=== PATIENT | male | born 1990 | race African-American/Black ===

== ENCOUNTER 2017-01-07 21:00 | Emergency (ER) | payer MEDICAID, OTHER ==
[~2017-01-07] VITALS: Ht 180.3 cm; Wt 85.0 kg
[2017-01-07 21:03] VITALS: BP 131/74; PULSE 78; RESP 16; TEMP 100.3; O2SAT 100
--- NOTE | 2017-01-07 22:58 | PD ---
HPI Chief Complaint: Injury Time Seen by Provider: 21:57 Travel History International Travel<30 days: No Contact w/Intl Traveler<30days: No Traveled to known affect area: No History of Present Illness HPI 26-year-old black male presents to emergency department requesting evaluation of possible glass foreign bodies in his feet. He states that he was barefoot last evening and stepped on a broken glass from his girlfriend. He had pulled what he felt was glass out of his left foot. He states that he try to get what he felt was glass out of his right foot feels a little something in it. He would like he also states that his girlfriend was diagnosed with an STD and he would like to be treated as well. FOR[facility]LY [facility] Past Medical History Medical History: Denies Significant Hx Diminished Hearing: No Tetanus Vaccination: < 5 Years Past Surgical History Other Surgery: Yes (nose sx, clavical sx) Social History Alcohol Use: Yes (occasionally) Tobacco Use: No Substance Use: No Allergies-Medications (Allergen,Severity, Reaction): Coded Allergies: No Known Allergies (Unverified , 01/07/17) Reported Meds & Prescriptions Reported Meds & Active Scripts Active Flagyl (Metronidazole) 500 Mg Tab 2,000 Mg PO ONCE Doxycycline Hyclate 100 Mg Cap 100 Mg PO BID 10 Days Review of Systems Except as stated in HPI: all other systems reviewed are Neg Physical Exam Narrative GENERAL: This is a well-nourished, well-developed patient, in no apparent distress. SKIN: No rashes, ecchymoses or lesions. Warm and dry. HEAD: Atraumatic. Normocephalic. EYES: PERRL, EOMI, no discharge or injection. No scleral icterus. EARS: Clear NOSE: Nasal turbinates appear normal. THROAT: Mucosa pink and moist. Airway patent. NECK: Trachea midline. supple, moves head freely. LUNGS: Clear to auscultation. CV: Regular in rhythm. ABDOMEN: Soft nontender. EXT: No clubbing cyanosis or edema. Patient has superficial abrasions to the plantar surface of both feet. No gross defect injury. No obvious foreign body. Data Data Last Documented VS Vital Signs Date Time Temp Pulse Resp B/P (MAP) Pulse Ox O2 Delivery O2 Flow Rate FiO2 01/07/17 21:03 100.3 78 16 131/74 (93) 100 Orders Orders Foot, Limited (2vws) (01/07/17 21:58) Foot, Limited (2vws) (01/07/17 21:58) Ceftriaxone Inj (Rocephin Inj) (01/07/17 23:00) MDM Medical Decision Making Medical Screen Exam Complete: Yes Emergency Medical Condition: Yes Medical Record Reviewed: Yes Interpretation(s) Right foot: Negative for foreign body. Left foot: Negative for foreign body Differential Diagnosis MDM: High Differential diagnoses: Fracture, sprain, strain, dislocation, contusion, neurovascular injury, STD Narrative Course X-rays are negative for foreign bodies. Patient reports STD exposure. He is given Rocephin 250 Anup grams IM and prescriptions for Zithromax and Flagyl. This is bilateral foot abrasions, STD exposure Diagnosis Primary Impression: bilateral foot abrasions Additional Impression: STD exposure Patient Instructions: General Instructions Additional Instructions: Rest. Partner notification. Follow-up with the [facility] Department for further STD testing such as HIV, syphilis and hepatitis. No intercourse until all partners treated. Medications as directed. Daily wound care with soap, water, Neosporin. Follow-up with a medical doctor in one week. Always use a condom. Return to the ER if any problems. Med/Other Pt SpecificInfo: Prescription(s) given Scripts Metronidazole (Flagyl) 500 Mg Tab 2000 MG PO ONCE for Infection, #4 TAB 0 Refills Prov: Marquis Jameson MD 01/07/17 Doxycycline Hyclate (Doxycycline Hyclate) 100 Mg Cap 100 MG PO BID for Infection for 10 Days, #20 CAP 0 Refills Prov: Marquis Jameson MD 01/07/17 Disposition: 01 DISCHARGE HOME Condition: Darius Guerrero Jan 07, 2017 22:58
[2017-01-07] MEDS ORDERED: cefTRIAXone 250 MG VIAL IM ONE (23:00)
[2017-01-07] MEDS ORDERED: METR-1 PO (23:00)
[2017-01-07] MEDS ORDERED: DOXY100C PO (23:00)
--- NOTE | 2017-01-07 23:36 | RADRPT ---
EXAM DATE/TIME: 01/07/2017 22:36 [facility] COMPARISON: No previous studies available for comparison. INDICATIONS : Right foot pain after stepping on glass two days ago. MEDICAL HISTORY : None. SURGICAL HISTORY : None. ENCOUNTER: Initial ACUITY: 2 days PAIN SCORE: 3/10 LOCATION: Right plantar surface. FINDINGS: Two view examination of the right foot demonstrates no soft tissue swelling, dislocation, or fracture . The calcaneus is intact. Bony mineralization is normal. CONCLUSION: No acute disease. No foreign body is seen. Sam Smith MD on January 07, 2017 at 23:34 Board Certified Radiologist. This report was verified electronically.
--- NOTE | 2017-01-07 23:36 | RADRPT ---
EXAM DATE/TIME: 01/07/2017 22:36 [facility] COMPARISON: No previous studies available for comparison. INDICATIONS : Left foot pain after stepping on glass two days ago. MEDICAL HISTORY : None. SURGICAL HISTORY : None. ENCOUNTER: Initial ACUITY: 2 days PAIN SCORE: 8/10 LOCATION: Left plantar surface. FINDINGS: Two view examination of the left foot demonstrates no soft tissue swelling, dislocation, or fracture. The calcaneus is intact. Bony mineralization is normal. CONCLUSION: Unremarkable limited examination of the left foot. Sam Smith MD on January 07, 2017 at 23:34 Board Certified Radiologist. This report was verified electronically.
== END 2017-01-07 23:48 | disposition home or self-care (01) ==
LOC: NEPK 21:00
DX: S90.812A Abrasion, left foot, initial encounter (principal); S90.811A Abrasion, right foot, initial encounter; W25.XXXA Contact with sharp glass, initial encounter; Z20.2 Contact with and (suspected) exposure to infections with a predominantly sexual mode of transmission
CPT/HCPCS: 73620; 96372; 99284; J0696